=== PATIENT | female | born 1985 | race African-American/Black ===

== ENCOUNTER 2022-01-14 09:25 | Inpatient (IN) | payer MEDICAID ==
[~2022-01-14] VITALS: Ht 157.5 cm; Wt 73.6 kg
[2022-01-17] VITALS (16 sets, daily range): BP systolic 83–122; BP diastolic 34–81; PULSE 59–94; TEMP 96.8–98.1
--- NOTE | 2022-01-17 14:40 | NUR ---
Patient ambulatory to 210 with significant other and mother, changed into gown, FHR/TOCO monitors placed. Patient here for scheduled Csection. Patient denies any regular contractions/leaking of fluid/vaginal bleeding/decreased movement. Plan of care discussed. IV started in left hand, blood obtained and to lab, LR infusing. Consents signs, assessments done, packet given. Patient prepped for surgery.
[2022-01-17] MEDS ORDERED: PRENATAL TABLET PO (15:14)
[2022-01-17] MEDS ORDERED: MOTRIN 800800 MG/TAB PO (15:15)
[2022-01-17] MEDS ORDERED: PERCOCET 325 MG1 TA2 PO (15:16)
[2022-01-17 15:55] LABS: BASO % 0.1 % (0.0-2.0); EOS # 0.2 K/mm3 (0.0-0.7); EOS % 2.4 % (0.0-4.0); GRAN # 6.9 K/mm3 (1.4-6.5); GRAN % 72.6 % (42.2-75.2); HEMOGLOBIN 12.8 g/dl (12.5-16.0); LYMPH # 1.7 K/mm3 (1.2-3.4); MEAN CELL VOLUME 92 fl (80.0-100.0); MEAN CORPUSCULAR HEMOGLOBIN 33 pg (27-31); MEAN CORPUSCULAR HGB CONC 36 g/dl (33.0-37.0); MEAN PLATELET VOLUME 11.3 fl (7.4-10.4); MONO # 0.6 K/mm3 (0.1-0.6); MONO % 6.3 % (1.7-9.3); PLATELET COUNT 201 K/mm3 (130-400); RED BLOOD COUNT 3.91 M/mm3 (4.10-5.30); REDCELL DISTRIBUTION WIDTH-CV 13.2 % (11.5-14.5)
[2022-01-17 15:57] LABS: HEMATOCRIT 35.9 % (37.0-47.0)
--- NOTE | 2022-01-17 20:00 | NUR ---
1998 UNABLE TO MOVE LEGS. CAN MOVE TOES A LITTLE. TURNED FROM SIDE TO SIDE AND PERICARE DONE. MINIMAL VAGINAL BLEEDING. REGULAR DIET TAKEN. IV TO INT.
[2022-01-18 02:00] VITALS: BP 109/57; PULSE 61; TEMP 98.5
[2022-01-18 07:30] VITALS: BP 116/68; PULSE 57; TEMP 97.9
--- NOTE | 2022-01-18 09:06 | NUR ---
Initial visit; Parents thanked [employer] for offering congratulations and God's blessings for the of their son. [employer] Developer thanked family for choosing [facility]. Family states they have had a wonderful experience at our hospital.
[2022-01-18 12:18] VITALS: BP 104/79; PULSE 58; TEMP 98.2
[2022-01-18 16:53] VITALS: BP 112/62; PULSE 64; TEMP 98.8
[2022-01-18 21:25] VITALS: BP 105/52; PULSE 83; TEMP 98.3
[2022-01-19 07:30] VITALS: BP 97/68; PULSE 60; TEMP 98.2
== END 2022-01-19 12:50 | disposition home or self-care (01) | DRG 788 ==
LOC: LDR 01-17 09:24 → OB 01-17 14:32
PROVIDERS: ADMIT Obstetrics & Gynecology
PROC: 10D00Z1 Extraction of Products of Conception, Low, Open Approach (ICD-10-PCS; principal; 2022-01-17)
DX: O34.211 Maternal care for low transverse scar from previous cesarean delivery (principal); Z37.0 Single live birth; O26.893 Other specified pregnancy related conditions, third trimester; Z67.21 Type B blood, Rh negative; Z3A.39 39 weeks gestation of pregnancy; Z23 Encounter for immunization
CPT/HCPCS: J0171; J0690; J1100; J1885; J2370; J2405; J2590; J7120